=== PATIENT | female | born 1995 | race Caucasian/White ===

== ENCOUNTER 2024-05-30 21:13 | Emergency (ER) | payer MEDICAID ==
[~2024-05-30] VITALS: Ht 175.3 cm; Wt 68.0 kg
[2024-05-30 21:18] VITALS: O2SAT 98
[2024-05-31] MEDS ORDERED: LIDOCAINE HCL/EPINEPHRINE 1%-EPI 1:100,000 20 ML VIAL INFIL ONE
[2024-05-31] MEDS: TETANUS, DIPHTHERIA, PERTUSSIS VAC/PF 0.5ML (>10YR OLD) IM ONE (00:50)
[2024-05-31] MEDS: HYDROCODONE/ACETAMINOPHEN 5/325MG TABLET PO ONE (00:50)
[2024-05-31] MEDS: ACETAMINOPHEN 325MG TABLET PO ONE (00:50)
[2024-05-31] MEDS ORDERED: AMOX1TAB16 MT (01:47)
[2024-05-31] MEDS ORDERED: MUPI1OIN4 TP (01:48)
[2024-05-31] MEDS: BACITRACIN ZINC OINT UDPKT TOP ONE (02:06)
[2024-05-31 02:15] VITALS: BP 118/68; PULSE 74; RESP 12; TEMP 98.5
[2024-05-31] MEDS: AMOXICILLIN/POTASSIUM CLAVULANATE 875/125MG TAB PO ONE (02:26)
== END 2024-05-31 02:29 | disposition home or self-care (01) ==
LOC: ER 21:13
DX: S51.811A Laceration without foreign body of right forearm, initial encounter (principal); I49.9 Cardiac arrhythmia, unspecified; W64.XXXA Exposure to other animate mechanical forces, initial encounter; Y93.89 Activity, other specified; Y92.89 Other specified places as the place of occurrence of the external cause; Y99.8 Other external cause status
CPT/HCPCS: 12004; 99284; 90715; 90471; J3490; Z7610